=== PATIENT | male | born 1960 | race Caucasian/White ===

== ENCOUNTER 2019-12-12 15:18 | Inpatient (IN) | payer OTHER, SELFPAY ==
[2019-12-12] VITALS (21 sets, daily range): BP systolic 92–154; BP diastolic 68–114; PULSE 64–139; RESP 16–26; TEMP 36.1–36.9; O2SAT 91–100; BMI 31.5
--- NOTE | 2019-12-12 15:24 | ECG_ITS ---
[facility] ED Test Date: 2019-12-12 Pat Name: Paul Eduardo Department: Room: ICU03 Gender: 0 Paper Finisher: : 1960 Requested By: Panda Telles Order Number: [id number] Erasto MD: Faith Couch M.D. Measurements Intervals [place] Rate: 190 P: [place]: 0 QRS: 55 QRSD: 198 T: 0 QT: 234 QTc: 416 Interpretive Statements ATRIAL FIBRILLATION WITH RAPID VENTRICULAR RESPONSE WITH ABERRANT CONDUCTION OR VENTRICULAR PREMATURE COMPLEXES INTRAVENTRICULAR CONDUCTION DELAY [130+ ms QRS DURATION] INFERIOR MYOCARDIAL INFARCTION,PROBABLY OLD No previous ECG available for comparison Electronically Signed On 12-13-2019 13:43:03 CDT by Faith Couch M.D. [id number]
[2019-12-12] MEDS: vecuronium 10 mg SDV IVP (15:32)
[2019-12-12] MEDS: heparin 5,000 unit/mL INJ 1 mL 4000 UNIT IVP (15:33)
[2019-12-12] MEDS: clopidogrel 300 mg Tablet PO (15:33)
--- NOTE | 2019-12-12 15:34 | XACV_ITS ---
Exam Room: [facility] Ht: 178 cm Wt: 100 kg BSA: 2.25 m2 Gender: Male : 1960 Exam Priority: Routine Procedure(s): Procedure Description: Diagnostic procedure Procedure Description: PCI procedure Procedure Description: Drug Eluting Coronary Stent Procedure Description: PTCA Procedure Description: Miscellaneous Procedure Description: ACT Procedure Description: Coronary Angiography Diagnostic Cath Status: Emergency Diagnostic Findings LM has 0% stenosis. LAD has 0% stenosis. Mid Circumflex Coronary Artery: Severe 99% stenosis, KRISS: 1 flow. Mid Right Coronary Artery to RPAV: Severe 100% stenosis, KRISS: 0 flow. Coronary angiography shows co-dominance. PCI Status: Emergency PCI Indication: STEMI - Unstable (> 12 hrs from Sx) Interventional Findings Mid Circumflex Coronary Artery: 99% stenosis treated with AB TREK 2.50X12 RX BALLOON and MDT R JARRETT 4.0X12 MICA. 0% residual stenosis, KRISS: 3 flow. Conclusions There is severe coronary artery disease with two vessel disease. Mid Circumflex Coronary Artery was treated with Balloon and Drug Eluting Stent. Paul Eduardo is a 59 year old male brought in by EMS after electrical defibrillation at the scene found to have inferoposterior ST elevation NV complicated with V. fib arrest resuscitated multiple electrical cardioversion and CPR performance. Patient was intubated in the ER with suspicion of aspiration. 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 fib treated with electrical cardioversion and brought into emergency room as defined above. ST elevation patient was alerted I immediately saw the patient during the CPR he was given IV amiodarone . He was also noted to be in cardiogenic shock with systolic blood pressure into 70s. We immediately gave him IV fluid and took him to the [facility]. Through right groin approach he was noted to have chronically occluded mid RCA and subtotally occluded large dominant circumflex with mid highly calcified lesion. It was the culprit lesion. I treated with balloon angioplasty followed by drug-eluting stent placement. Patient was started on Levophed systolic blood pressure came back to 100 he was also noted to have separate ostium of the LAD without significant disease. Patient was then transferred to the ICU in relatively stable condition. Recommendations 1-Return to inpatient for close monitoring and routine cath care, continue pressors 2-Risk factor modification for secondary prevention 3-Statin with LDL goal <70 mg/dl, aspirin 81 mg life-long 4-Patient was pre-loaded with 180mg of Brillinta. Continue Brillinta 90mg p.o. twice daily for at least one year. We will assess at the end of one year again to continue it further or not 5-Continue optimal medical management 6-Follow up with Dr. Lea in four weeks and with your PCP in one week . Diagnostic RX Recommendation: PCI w/o planned CABG Pressures Phase:Rest AO : 69 mmHg / 64 mmHg ( 64 mmHg ) @ 11:09:00 AM 89 mmHg / 75 mmHg ( 82 mmHg ) @ 11:14:00 AM 87 mmHg / 72 mmHg ( 79 mmHg ) @ 11:17:00 AM Clinical Evaluation EBL: 5mL-10mL Procedural Details Pre-Procedure Time Out. Identified patient by full name and date of as verbalized by the patient/guarantor. Does the consent match the physician's order: N/A Emergent; Informed Consent not obtained due to time critical life threat. Accurate & Complete Informed Consent: N/A Emergent; Informed Consent not obtained due to time critical life threat. Inpatient/Outpatient History & Physical on Chart: N/A Emergent; Informed Consent not obtained due to time critical life threat. If H&P is completed, is and addenduem needed: N/A Emergent; Informed Consent not obtained due to time critical life threat; If yes, is the addendum complete: N/A Emergent; Informed Consent not obtained due to time critical life threat. Visualize and Verify Site with Patient/Guarantor: N/A. Relevant Radiology Images available: N/A. Procedure started. [facility] Clinical Fraility Score: 3: Managing Well. [facility] Indications: ACS <= 24 hours/ cardiac arrest. Chest Pain Symptom Assessment: Typical Angina Symptoms. Cardiovascular Instability: Yes, if yes, Cardiogenic Shock. Correct patient, site and procedure confirmed by cath team. PERRLA. 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 Lungs clear x 5 lobes. 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 Equipment: 6F - Radial. Physician arrived. Physician scrubbed in. Immediate Pre-Procedure Time Out. Correct Patient: N/A Emergent; Informed Consent not obtained due to time critical life threat; Correct Procedure: N/A Emergent; Informed Consent not obtained due to time critical life threat; Correct Site: N/A Emergent; Informed Consent not obtained due to time critical life threat; Correct Patient Position: N/A Emergent; Informed Consent not obtained due to time critical life threat; Correct Supplies: N/A Emergent; Informed Consent not obtained due to time critical life threat; Dried Flammable Prep: N/A Emergent; Informed Consent not obtained due to time critical life threat; Blood Products Available: N/A Emergent; Informed Consent not obtained due to time critical life threat;. Lidocaine 1% infiltrated to the right groin. Arterial access obtained. 6 pakistani JR 4 SH guide catheter was inserted over the wire. [place] guidewire was advanced through the guide catheter to lesion in the prox RCA. Inflation number : 3 A AB TREK 2.50X15 RX BALLOON was prepped and advanced across the Mid RCA , then inflated to 12 HI for 0:07 seconds. Inflation number: 2 The AB TREK 2.50X15 RX BALLOON was reinflated across the Mid RCA, to 12 HI for 0:03 seconds. Inflation number: 1 The AB TREK 2.50X15 RX BALLOON was reinflated across the Mid RCA, to 12 HI for 0:07 seconds. Balloon and wire out. Guide catheter out. 6 pakistani XB 3.5 guide catheter was inserted over the wire. [place] guidewire was advanced through the guide catheter to lesion in the mid Circ. Inflation number : 1 Chika NJ TREK 2.50X12 RX BALLOON was prepped and advanced across the Mid CX , then inflated to 14 HI for 0:14 seconds. Balloon out. Inflation Number : 2 Chika DEWEY Meyer JARRETT 4.0X12 MICA -Lot Number# [id number] exp date was prepped and advanced across the Mid CX. The stent was deployed at 18 HI for 0:11 seconds. Stent balloon and wire out. Inventory is CRD 6FR JL 4SH GUIDE. Amiodorone off. 6 pakistani JL 4 SH guide catheter was inserted over the wire. Claire RN present to monitor drips. 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 [place] guidewire was advanced through the guide catheter to lesion in the mid LAD. Wire out. Critical Potassium of 2.[address] Lea. Patient's family unavailable. Dr Lea will contact family. A Suture was successful obtaining hemostatsis at the Right Femoral artery insertion site. Sheath(s) sutured into position with 2-0 silk and sterile 4x4's and Op-site applied over the site. No oozing or signs and symptoms of hematoma noted. Arterial sheath flushed and connected to tranducer and pressure bag with heparinized saline. Post Procedure: Pulses reassessed and unchanged. PERRLA. 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 No VTE prophylaxis required. Dr Lea scrubbed out. ACT drawn. Results 217 seconds. Therapeutic limits - pre-heparin administration 90-150 seconds and monitoring heparin during a vascular procedure >250 seconds. Complications: none. Estimated blood loss: 5mL-10mL. Medication's Wasted: Lidocaine 1% = 10 mL. Medication's Wasted: Heparin = 1000 units. Pt had total of 2 L IV fluids. Contrast type used: Omnipaque 300 mgI/mL, 500 mL bottle. PCI Indication: STEMI. Procedure completed. Patient transferred by bed to ICU. Site: Right Femoral artery Sheath Size: 6 Fr Hemostasis Method: Suture Hemostasis Success: Successful Procedure Medications Start: 3:55 PM Stop: 3:55 PM Medication: 0.9% Saline Amount: 250 ml Route: I.V. bolus Start: 4:03 PM Stop: 4:03 PM Medication: Heparin Amount: 5000 units Route: I.V. Start: 4:06 PM Stop: 4:06 PM Medication: Aggrastat 12.5 mg/250 mL Amount: 50 ml Route: I.V. bolus Start: 4:10 PM Stop: 4:10 PM Medication: Levophed (norepinephrine) Amount: 2 mcg/min Route: I.V. drip Start: 4:17 PM Stop: 4:17 PM Medication: Levophed (norepinephrine) Amount: 8 mcg/min Route: I.V. drip Start: 4:08 PM Stop: 4:08 PM Medication: Aggrastat 12.5 mg/250 mL Amount: 18 ml/hr Route: I.V. drip Start: 4:36 PM Stop: 4:36 PM Medication: Heparin Amount: 3000 units Route: I.V. I, the attending physician, have reviewed and verified all procedure medications. Yes, all medications given per verbal order Report Signatures Finalized by:Monie Lea MD on 12/17/2019 3:55:00 PM
[2019-12-12] MEDS: sodium chloride 0.9% 1,000 ML 999 ML IV (15:40)
[2019-12-12 15:42] LABS: Basophils # 0.1 10^3/uL (0.0-0.1); Basophils % 0.9 %; Eosinophils # 0.3 10^3/uL (0.0-0.8); Eosinophils % 2.1 %; Hematocrit 48.8 % (42.0-52.0); Hemoglobin 15.8 g/dL (11.7-16.6); Lymphocytes % 51.1 %; Mean Corpuscular HGB Conc 32.4 g/dL (30.0-36.0); Mean Corpuscular Hemoglobin 29.4 pg (28.0-34.0); Mean Corpuscular Volume 90.7 fL (80-94); Monocytes # 1.2 10^3/uL (0.2-0.9); Monocytes % 8.4 %; Neutrophils # 5.1 10^3/uL (1.8-7.7); Neutrophils % 37.2 %; Nucleated Red Blood Cells % 0 %; Platelet Count 380 10^3/cmm (130-400); Red Blood Count 5.38 10^6/uL (4.1-5.3); Red Cell Distribution Width 13.6 % (12.1-15.1); White Blood Count 13.7 10^3/uL (4.0-10.0)
[2019-12-12 15:51] LABS: INR 0.97 (0.8-1.2)
--- NOTE | 2019-12-12 15:53 | W.ED.CHESTPA ---
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 Patient went to EMS and did have an ST elevation on his EKG. Patient went to [employer] [employer] on the way here and was cardioverted. Patient first arrived here he is awake and alert state he still had some slight pain. After being here for roughly 3 to 4 minutes patient went to [employer] again. Associated symptoms: Deny abdominal pain, dyspnea, fever(s), nausea or vomiting Review of Systems Const: Denies: fever(s), chills, body aches or change in appetite Eyes: Denies: blurry vision or eye discomfort ENMT: Denies: throat pain or dental pain Card: Reports: chest pain, irregular heart rhythm and lightheadedness Resp: Denies: dyspnea GI: Denies: abdominal pain, nausea, vomiting or diarrhea : Denies: dysuria Musc: Denies: neck pain or back pain Skin/Breast: Denies: rash Neuro: Denies: headache(s) Psych: Denies: depression Lion/Lymph: Denies: easy bruising All/Imm: Denies: urticaria PFSH ED PFSH: Social History Smoking and tobacco status: unknown if ever smoked Physical Exam Const: GENERAL APPEARANCE: in distress and ill appearing HENMT: COMMON NORMALS: normocephalic and atraumatic HEAD & SCALP: normocephalic and atraumatic Eye: COMMON NORMALS: Equal, round and reactive pupils present and EOMs intact bilaterally PUPIL: Yes Equal, round and reactive pupils present Neck/C-Spine: COMMON NORMALS: full ROM and supple Chest: COMMONS NORMALS: normal inspection of the chest and normal palpation of entire chest wall Resp: COMMON NORMALS: normal respiratory effort, No retractions, No use of accessory muscles and clear to auscultation bilaterally AUSCULTATION: clear to auscultation bilaterally Cardio: COMMON NORMALS: No murmurs present (Cardio) RATE: tachycardic GI: COMMON NORMALS: Normal to inspection, nondistended, normoactive bowel sounds present, Soft to palpation, non-tender and no masses PALPATION: Yes Soft to palpation Extremity: COMMON NORMALS: normal to inspection and full ROM Neuro: COMMON NORMALS: moves all extremities and no focal motor deficits Psych: COMMON NORMALS: mental status grossly normal, Normal thought process present and cooperative THOUGHT PROCESS: Normal thought process present Skin: COMMON NORMALS: no rashes or lesions noted and no wounds GENERAL SKIN EXAM: no rashes or lesions noted Procedures Intubation sedative: Etomidate Mg Given: 20 paralytic: Succinylcholine Mg Given: 200 Laryngoscope: Dena ET Tube Size: 7.5 ET Tube Uncuffed: Yes Tube Secured Depth (cm): 27 Tube Secured Location: lips Tube Placement Confirmation: visualized tube passing through cords, equal breath sounds bilaterally, no breath sounds over epigastrium and confirmation by capnometry Patient Tolerated Procedure: well MDM - Chest Pain MDM Narrative: Medical decision making narrative: Patient presents here after he walked to EMS complain of chest pain. Initial EKG by EMS showed ST elevation OK. Patient had one episode of V. fib and was shocked and converted on way here. In first patient first arrived he was awake and then went to V. fib again. Patient was cardioverted again and and abated. Patient was given lidocaine along with amiodarone and had another episode of V. fib and was shocked twice. Patient taken to the [facility] after that by Dr. 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 Lab Data: Labs: Lab Results 12/12/19 Range/Units 15:35 PT 13.20 (10.5-13.3) SECO NDS INR 0.97 (0.8-1.2) Critical Care Time Critical Care Time: Critical Care Time: Yes Total Critical Care Time: 36 Attestation: This case had a high probability of a clinically significant, sudden, or life threatening deterioration of this patient's condition which required my full and direct attention, intervention and personal management. Discharge Plan Discharge Patient Disposition: Admitted As Inpatient Clinical Impression: Cardiac arrest ST elevation (STEMI) myocardial infarction Qualifiers: Involved coronary artery: unspecified coronary artery Qualified Code(s): I21.3 - ST elevation (STEMI) myocardial infarction of unspecified site Condition: Stable Coding Level of Care Code ED Nightclub Manager for Mandeep Simmons
[2019-12-12 15:59] LABS: Partial Thromboplastin Time 74.4 SECONDS (23.9-36.7)
[2019-12-12 16:08] LABS: Alanine Aminotransferase 30 U/L (0-41); Albumin Level 4.2 g/dL (3.5-5.2); Alkaline Phosphatase 51 IU/L (40-130); Anion Gap 29.9 (5-19); Aspartate Amino Transferase 29 U/L (0-40); Blood Urea Nitrogen 12 mg/dL (6-20); CKMB 2.2 ng/mL (0-10.4); Calcium 9.3 mg/dL (8.5-10.5); Carbon Dioxide 16 mmol/L (22-29); Chloride 102 mmol/L (98-107); Creatine Phosphokinase 125 U/L (39-308); Globulin 2.7 g/dL (1.3-4.6); Glomerular Filtration Rate 52.2 mL/min (90-130); Glucose 176 mg/dL (65-115); NT Pro B Type Natriuretic Pept 484 pg/mL (0-125); Osmolality Calculated 300 mOsm/kg (285-295); Sodium 145 mmol/L (136-145); Total Bilirubin 0.5 mg/dL (0.15-1.2); Total Protein 6.9 g/dL (6.6-8.7); Troponin(5th) Baseline 90 ng/L (0-15)
[2019-12-12 16:22] LABS: Potassium 2.9 mmol/L (3.5-5.1)
[2019-12-12 16:27] LABS: Slide Review Slide Review Perform
[2019-12-12 16:30] LABS: ABG PCO2 37.1 mmHg (35-45); ABG PH Result 7.27 (7.35-7.45); Alveolar-Arterial Oxygen Gradi 59.4 mmHg (5-10); Arterial Blood Gas Hematocrit 50.4 % (42-52); Base Excess ABG -8.9 mmol/L (-2.0-2.0); Blood Gas Allen Test Pos; Blood Gas Sample Site Brachial, left; Blood Gas Sample Type Arterial; Carboxyhemoglobin 0.7 %THgb (0.4-20.1); HCO3 ABG 17.2 mmol/L (22-26); HGB O2 Sat 72.9 % (95-100); Ionized Calcium Level - ABG 1.1 mmol/L (1.1-1.4); Methemoglobin 0.8 % (0.4-1.5); Oxygen Device AMBU; Oxygen Saturation ABG 74.1; Potassium Level - ABG 2.6 mmol/L (3.5-5.0); Total Hemoglobin 16.4 g/dL (14-18)
--- NOTE | 2019-12-12 16:49 | USCV_ITS ---
Paul Eduardo Age: 59 Gender: M : 1960 Exam Date: 12/12/2019 17:41 Ordering Phys: Monie Lea MD ([email or web address]) Technologist: Mone Tamez Exam Location: [facility] Indication: HI SHOCK BP: / HR: 66 Rhythm: Sinus Technical Quality: Fair MEASUREMENTS (Male / Female) Normal Values 2D ECHO LVOT Diameter 2.1 cm LV Ejection Fraction MOD 2C 44.4 % LV Ejection Fraction 2C AL 43.8 % LA Diameter 3.5 cm M-MODE LV Diastolic Diameter MM 4.9 cm 4.2 - 5.9 / 3.9 - 5.3 cm LV Systolic Diameter MM 3.8 cm LV Ejection Fraction MM Teich 45.1 % IVS Diastolic Thickness MM 1.0 cm 0.6 - 1.0 / 0.6 - 0.9 cm IVS Systolic Thickness MM 1.7 cm LVPW Diastolic Thickness MM 1.3 cm 0.6 - 1.0 / 0.6 - 0.9 cm LVPW Systolic Thickness MM 2.1 cm RV Diastolic Diameter MM 1.7 cm Aortic Annulus Diameter 3.1 cm LA Ao Ratio MM 1.1 MV E Point Septal Separation 1.8 cm FINDINGS Left Ventricle Normal left ventricular cavity size. Moderately decreased left ventricular systolic function. Left ventricular ejection fraction is estimated at 45 %. Left ventricular lateral wall hypokinesis noted Right Ventricle Right Atrium Left Atrium Mitral Valve Aortic Valve Tricuspid Valve Pulmonic Valve Pericardium Aorta CONCLUSIONS Please note that this is a limited echo to assess LV function post cardiac arrest and intubated patient. Normal left ventricular cavity size. Moderately decreased left ventricular systolic function. Left ventricular ejection fraction is estimated at 45 %. Left ventricular lateral wall hypokinesis noted. Monie Lea MD (Electronically Signed) Final Date: 13 December 2019 19:22 S
--- NOTE | 2019-12-12 16:54 | PM.HP ---
Providers/Chief Complaint Admitting Physician: Monie Lea MD Chief Complaint: Post-code/STEMI History of Present Illness Paul Eduardo is a 59 year old male brought in by EMS after electrical defibrillation at the scene found to have inferoposterior ST elevation CA complicated with V. fib arrest resuscitated multiple electrical cardioversion and CPR performance. Patient was intubated in the ER with suspicion of aspiration. 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 fib treated with electrical cardioversion and brought into emergency room as defined above. ST elevation patient was alerted I immediately saw the patient during the CPR he was given IV amiodarone and started on the drip. He was also noted to be in cardiogenic shock with systolic blood pressure into 70s. We immediately gave him IV fluid and took him to the [facility]. Through right groin approach he was noted to have chronically occluded mid RCA and subtotally occluded large dominant circumflex with mid highly calcified lesion. It was the culprit lesion. I treated with balloon angioplasty followed by drug-eluting stent placement. Patient was started on Levophed systolic blood pressure came back to 100 he was also noted to have separate ostium of the LAD without significant disease. Patient was then transferred to the ICU in relatively stable condition. Review of Systems Const: Denies: fever(s), chills, body aches or change in appetite Eyes: Denies: blurry vision or eye discomfort ENMT: Denies: throat pain or dental pain Card: Reports: chest pain, irregular heart rhythm and lightheadedness Resp: Denies: dyspnea GI: Denies: abdominal pain, nausea, vomiting or diarrhea : Denies: dysuria Musc: Denies: neck pain or back pain Skin/Breast: Denies: rash Neuro: Denies: headache(s) Psych: Denies: depression Lino/Lymph: Denies: easy bruising All/Imm: Denies: urticaria Medications/Allergies Allergies Allergy/AdvReac Type Severity Reaction Status Date / Time No Known Allergies Allergy Verified 12/12/19 16:44 PFSH Acute PFSH: Social History Smoking and tobacco status: unknown if ever smoked Vitals/I&O/Wt Last Vital Signs Pulse 139 H 12/12/19 15:19 Resp 20 H 12/12/19 15:19 BP 154/114 12/12/19 15:19 Pulse Ox 100 12/12/19 15:19 Weight last 48 hrs Weight 220 lb Physical Exam Narrative: EXAM NARRATIVE: GENERAL: Patient is intubated and sedated NECK: No jugular vein distension. HEENT: No cyanosis. No icterus. pallor. HEART: Regular S1 and S2. No murmur, rub or gallop. LUNGS: Decreased breath bilaterally. ABDOMEN: Soft, nontender and nondistended. Positive bowel sounds. No guarding, rebound or tenderness. 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 Urinary Catheter Management^: Page: Cath Placed During This Visit: yes Reason for Continuing Indwelling Catheter: Other Urinary Catheter Date of Insertion: 12/12/19 Urinary Catheter Time of Insertion: 15:40 Data : 12/12/19 15:35 12/12/19 15:35 A&P Assessment and plan (1) ST elevation (STEMI) myocardial infarction: Status post drug-eluting stent to proximal circumflex with excellent angiographic result. I will switch patient to Effient, Aggrastat was started. We will continue to intubate the patient for airway protection until he become fully cognitive and conscious. Further plan will be advised then. Status: Acute Qualifiers: Involved coronary artery: unspecified coronary artery Qualified Code(s): I21.3 - ST elevation (STEMI) myocardial infarction of unspecified site (2) Cardiac arrest: Cardiac arrest secondary to ST elevation CA and life-threatening arrhythmia (ventricle fibrillation), since he has revascularized the circumflex territory hopefully ventricular fibrillation/arrhythmia will resolve. We will use amiodarone if needed Status: Acute (3) Cardiogenic shock: I will continue IV fluid and norepinephrine. We will titrate off once improved. Echocardiogram will be obtained to assess LV function, x-ray chest will be obtained. I will start patient on IV Protonix Status: Acute (4) Aspiration into airway: I have the suspicion patient may have aspirated. I will start on Zosyn for prophylaxis to cover anaerobes. I will ask for x-ray chest. Status: Acute Qualifiers: Encounter type: initial encounter Qualified Code(s): T17.908A - Unspecified foreign body in respiratory tract, part unspecified causing other injury, initial encounter Attestations Medical Necessity Statement*: Patient require continuation hospitalization for above defined care. He is critical in condition. I have discussed in detail with the family his both son on the telephone regarding my findings and treatment they understand it and are in agreement. Prognosis guarded Time Spent in Patient Care: Greater than 35 minutes Critical Care Time: Critical Care Time (min): 60 Coding Level of Care Code New Pt Acute Account Review Specialist for Chg Fwd Patient Type New History Comprehensive Exam Comprehensive Medical Decision Making High Complexity Diagnoses ST elevation (STEMI) myocardial infarction I21.3 Involved coronary artery: unspecified coronary artery Cardiac arrest I46.9 Cardiogenic shock R57.0 Aspiration into airway T17.908A Encounter type: initial encounter Time Spent (min) 90
--- NOTE | 2019-12-12 17:12 | XR_ITS ---
WS: [id number] XR chest 1V portable [id number] REASON FOR EXAM: intubation ogt FINDINGS: Endotracheal tube is noted approximately 2 cm above the galen. There is pulmonary edema bilaterally. There is a feeding tube seen in good position in the stomach. XR/XR chest 1V portable [id number] IMPRESSION: Acute pulmonary edema bilaterally Endotracheal tube and feeding tube satisfactory position.
[2019-12-12 17:17] LABS: ABG PCO2 38.7 mmHg (35-45); ABG PH Result 7.32 (7.35-7.45); Alveolar-Arterial Oxygen Gradi 595.2 mmHg (5-10); Arterial Blood Gas Hematocrit 46.1 % (42-52); Base Excess ABG -5.9 mmol/L (-2.0-2.0); Blood Gas Allen Test Pos; Blood Gas Sample Site Radial, left; Blood Gas Sample Type Arterial; Blood Gas Tidal Volume 0.55; Carboxyhemoglobin 0.7 %THgb (0.4-20.1); HCO3 ABG 19.8 mmol/L (22-26); HGB O2 Sat 86.5 % (95-100); Oxygen Device VENT; PO2 ABG 57.4 mmHg (80.0-100.0); Potassium Level - ABG 3.4 mmol/L (3.5-5.0)
--- NOTE | 2019-12-12 17:24 | ECG_ITS ---
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 Measurements Intervals [place] Rate: 75 P: 56 WI: 159 QRS: 22 QRSD: 98 T: -24 QT: 458 QTc: 512 Interpretive Statements SINUS RHYTHM WITH OCCASIONAL VENTRICULAR PREMATURE COMPLEXES INFERIOR MYOCARDIAL INFARCTION [40+ ms Q WAVE AND/OR ST/T ABNORMALITY IN II/aVF], OF INDETERMINATE AGE ST DEPRESSION, CONSIDER SUBENDOCARDIAL INJURY [0.1+ mV ST DEPRESSION] Compared to ECG 12/12/2019 15:29:32 ST (T wave) deviation now present Atrial fibrillation no longer present Aberrant conduction of supraventricular beat(s) no longer present Intraventricular conduction delay no longer present Myocardial infarct finding still present Electronically Signed On 12-13-2019 14:14:55 CDT by Faith Couch M.D. [id number]
[2019-12-12] MEDS: propofol 1,000 MG/100 ML INJ 15 MG (17:33)
[2019-12-12] MEDS: pantoprazole 40 mg SDV IVP (17:34)
[2019-12-12] MEDS: morphine 4 mg/mL SDV 1 mL IVP (17:35)
[2019-12-12] MEDS: piperacillin-tazobactam 3.375 GM in sodium chloride 0.9% (plus) 50 ML IV (17:36)
[2019-12-12] MEDS: potassium chloride premix 40 MEQ/100 ML PREMIX 25 MEQ IV (17:38)
[2019-12-12 17:48] LABS: Troponin 5 2HR 1021 ng/L (0-15); Troponin 5 2HR Delta 931 ABS# (0-10)
[2019-12-12] MEDS: sodium chloride 0.9% 1,000 ML 250 ML IV (18:07)
[2019-12-12] MEDS: prasugrel 10 MG Tablet 60 MG PO (18:09)
[2019-12-12] MEDS: sodium chloride 0.9% 1,000 ML 100 ML IV (19:45)
--- NOTE | 2019-12-12 21:24 | ECG_ITS ---
[facility] Test Date: 2019-12-12 Pat Name: Paul Eduardo Department: Room: ICU03 Gender: Male Inspector Salvage: [place] : 1960 Requested By: Panda Telles Order Number: [id number] Erasto MD: Faith Couch M.D. Measurements Intervals [place] Rate: 72 P: 59 IA: 160 QRS: -4 QRSD: 88 T: -55 QT: 414 QTc: 454 Interpretive Statements SINUS RHYTHM INFERIOR MYOCARDIAL INFARCTION [40+ ms Q WAVE AND/OR ST/T ABNORMALITY IN II/aVF], OF INDETERMINATE AGE Compared to ECG 12/12/2019 17:03:51 Ventricular premature complex(es) no longer present ST (T wave) deviation no longer present Myocardial infarct finding still present Electronically Signed On 12-13-2019 14:14:23 CDT by Faith Couch M.D. [id number]
[2019-12-12 22:15] LABS: Troponin 5 6HR 4650 ng/L (0-15); Troponin 5 6HR Delta 4560 ng/L (0-12)
[2019-12-12 22:43] LABS: Partial Thromboplastin Time 41.5 SECONDS (23.9-36.7)
[2019-12-12] MEDS: ondansetron 2 mg/ML SDV 2 mL 4 MG IVP (23:30)
[2019-12-13] VITALS (27 sets, daily range): BP systolic 93–122; BP diastolic 61–85; PULSE 81–101; RESP 12–27; TEMP 36.7–37.2; O2SAT 87–97
[2019-12-13] MEDS: piperacillin-tazobactam 3.375 GM in sodium chloride 0.9% (plus) 50 ML IV ×3 (02:44→15:13)
[2019-12-13 05:05] LABS: Basophils % 0.2 %; Hematocrit 44.2 % (42.0-52.0); Hemoglobin 14.1 g/dL (11.7-16.6); Lymphocytes # 1.1 10^3/uL (0.8-4.8); Mean Corpuscular HGB Conc 31.9 g/dL (30.0-36.0); Mean Corpuscular Hemoglobin 29.5 pg (28.0-34.0); Mean Corpuscular Volume 92.5 fL (80-94); Mean Platelet Volume 10.3 fL (7.4-10.4); Monocytes # 0.9 10^3/uL (0.2-0.9); Monocytes % 5.3 %; Neutrophils # 15.3 10^3/uL (1.8-7.7); Nucleated Red Blood Cells % 0 %; Platelet Count 264 10^3/cmm (130-400); Red Blood Count 4.78 10^6/uL (4.1-5.3); Red Cell Distribution Width 14.1 % (12.1-15.1); White Blood Count 17.4 10^3/uL (4.0-10.0)
[2019-12-13] MEDS: sodium chloride 0.9% 1,000 ML 100 ML IV (05:23)
[2019-12-13] MEDS: pantoprazole 40 mg SDV IVP ×2 (05:23→15:15)
--- NOTE | 2019-12-13 05:42 | PC.NURSE ---
Shift Summary Full head to toe Assessment complete at 1930. Patient was on Levophed at 9 mcg and propofol at [address] Lea at bedside around 2200. Stated to plan and extubate based on patient tolerance. RT decreased vent settings to test patient tolerance around 2200. Tolerating well at this time. At 2300, patient began to cough and proceeded to projectile vomit x3 around ET and OG tube. Brown non-digested food was noted. Post vomit, patient was cleaned and proceeded to be alert and oriented. Able to follow commands and lift head off pillow to prepare for extubation. Both Levophed and Propofol were shut off at this time. Patient was extubated at 2310 to 4L/NC. Tolerated well. PTT came back around 2330 to remove sheath. Sheath in right femoral artery was removed at 2342. see post cath sheet. Patient tolerated well. Educated patient on importance of Cough and Deep Breathing. Also, sheath removal precautions. At about 0300, patient stated he wanted water. Tolerated well. Advanced diet to cardiac diet for AM breakfast per order. updated at 0100 of patient condition. Very pleased.
[2019-12-13 05:52] LABS: Anion Gap 12.7 (5-19); Blood Urea Nitrogen 13 mg/dL (6-20); Calcium 7.6 mg/dL (8.5-10.5); Carbon Dioxide 23 mmol/L (22-29); Chloride 108 mmol/L (98-107); Glomerular Filtration Rate 56.9 mL/min (90-130); Glucose 142 mg/dL (65-115); Osmolality Calculated 287 mOsm/kg (285-295); Potassium 4.7 mmol/L (3.5-5.1); Sodium 139 mmol/L (136-145)
[2019-12-13] MEDS: enoxaparin 40 mg/0.4 mL Syringe SUBCUT (07:37)
[2019-12-13] MEDS: acetaminophen 325 mg Tablet 650 MG PO (07:39)
[2019-12-13] MEDS: ALPRAZolam 0.25 mg Tablet PO ×2 (07:40→15:13)
--- NOTE | 2019-12-13 09:21 | PC.NURSE ---
PATIENT IS ALERT AND ORIENTATED. COMPLAINS OF FEELING TIRED. HE ATE ONLY A FEW BITES OF OATMEAL AND DRANK HIS FLUIDS. HIS FAMILY WAS ALLOWED BACK TO SEE HIM AND WERE UPDATED ON HIS PROGRESS. CONCERNS FOR RISK FOR LUNG INFECTION, AND THE NEED FOR BLOOD THINNERS SPECIFIC TO HIS STENT. HIS DIET WILL BE CHANGED ONCE OUT TO A LOW FAT LOW SODIUM DIET BUT IF HE DOES WELL HE CAN ANTICIPATE GOING HOME BY THE WEEKEND. PLAN TO GET UP TO THE CHAIR ONCE HIS VISITORS HAVE LEFT.
[2019-12-13 09:44] LABS: Estmated Average Glucose 108; Hemoglobin A1C 5.4 % (4.0-6.0)
[2019-12-13] MEDS: oxyCODONE-APAP 5-325 mg Tablet PO ×2 (10:37→15:14)
[2019-12-13] MEDS: prasugrel 10 MG Tablet PO (10:38)
--- NOTE | 2019-12-13 12:57 | PC.NURSE ---
attempted to get patient to chair at 0900, 1000 while family there and after they left. he awakened for lunch but refused to eat in the chair. i had him on room air while eating but after lunch he dropped to 87 88 and i had to resume oxygen at 2.5 liters to keep a sat above 90. patient is aware of risk .
--- NOTE | 2019-12-13 18:32 | P.PN_ITS ---
Subjective Subjective: Interval history: Successfully extubated last night and weaned off from pressors. He is mentating good. Chest pain due to some soreness in the chest musculoskeletal in nature secondary to possible rib injury Medications: Reviewed: Yes Vitals/I&O/Wt Last Vital Signs Temp 98.8 F 12/13/19 16:00 Pulse 93 12/13/19 18:00 Resp 20 H 12/13/19 18:00 BP 95/65 12/13/19 18:00 Pulse Ox 93 12/13/19 18:00 12/13/19 12/13/19 12/13/19 06:59 14:59 22:59 Intake Total 1507.773 / 2736.358 1946.667 / 1946.667 400 / 2346.667 Output Total 500 / 500 450 / 450 300 / 750 Balance 1007.773 / 2236.358 1496.667 / 1496.667 100 / 1596.667 Weight last 48 hrs Weight 220 lb Physical Exam Narrative: EXAM NARRATIVE: GENERAL: Patient is alert awake and oriented x3 NECK: No jugular vein distension. HEENT: No cyanosis. No icterus. pallor. HEART: Regular S1 and S2. No murmur, rub or gallop. LUNGS: Clear to auscultate breath bilaterally. ABDOMEN: Soft, nontender and nondistended. Positive bowel sounds. No guarding, rebound or tenderness. 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 Urinary Catheter Management^: Page: Cath Placed During This Visit: yes, but has since been removed by the nurse Reason for Continuing Indwelling Catheter: Decision to DC Catheter Urinary Catheter Date of Insertion: 12/12/19 Urinary Catheter Time of Insertion: 15:40 Date Urinary Catheter Removed: 12/13/19 Time Urinary Catheter Discontinued: 10:30 Data : 12/13/19 04:09 12/13/19 05:30 Micro: Microbiology 12/12/19 17:45 Gram Stain - Final Sputum - Endotracheal Tube Aspirate A&P Assessment and plan (1) ST elevation (STEMI) myocardial infarction: Patient has been successfully extubated and weaned off from pressors. Systolic blood pressure hangs around 100. Continue Effient aspirin 81 mg, atorvastatin was added. Echocardiogram is pending. We will add metoprolol and MAL inhibitor once blood pressure is more stable. Status: Acute Qualifiers: Involved coronary artery: unspecified coronary artery Qualified Code(s): I21.3 - ST elevation (STEMI) myocardial infarction of unspecified site (2) Cardiac arrest: Resolved most likely secondary to STEMI Status: Acute (3) Cardiogenic shock: Improved and resolved. Status: Acute (4) Aspiration into airway: Continue IV antibiotics. Lungs are clear. I may will stop it tomorrow Status: Acute Qualifiers: Encounter type: initial encounter Qualified Code(s): T17.908A - Unspecified foreign body in respiratory tract, part unspecified causing other injury, initial encounter Attestations Medical Necessity Statement*: Patient require continuation hospitalization for above defined care. Coding Level of Care Code Established Pt Acute Or Nurse Manager for Mandeep Simmons Patient Type Established History Expanded Problem Focused Exam Expanded Problem Focused Medical Decision Making Moderate Complexity Diagnoses ST elevation (STEMI) myocardial infarction I21.3 Involved coronary artery: unspecified coronary artery Cardiac arrest I46.9 Cardiogenic shock R57.0 Aspiration into airway T17.908A Encounter type: initial encounter
--- NOTE | 2019-12-13 19:30 | PC.NURSE ---
190 Patient is resting comfortably in chair at bedside. Report given by ANEL Remy. Patient has no concerns at this time. 1914 Report given to ANEL Beltre on CSU. Patient was transferred to wheelchair safely. Taken to CSU by SHAHEED Nguyễn. Transferred safely to CSU bed. Resting comfortably, nursing at bedside.
[2019-12-13] MEDS: atorvastatin 40 mg Tablet 80 MG PO (20:38)
--- NOTE | 2019-12-13 23:15 | PC.NURSE ---
Received patient from ICU ~1935 via wheelchair. Patient reports feeling well. C/o chest pain from compressions . Patient denies other complaints or needs. No distress observed.
[2019-12-14] VITALS (8 sets, daily range): BP systolic 109–118; BP diastolic 60–76; PULSE 95–107; RESP 18–30; TEMP 36.5–39.1; O2SAT 89–94
--- NOTE | 2019-12-14 | USCV_ITS ---
Paul Eduardo Age: 59 Gender: M : 1960 Exam Date: 12/14/2019 07:42 Ordering Phys: Monie Lea MD ([email or web address]) Technologist: Neil Hernandes [place] [facility] [place]: [place] BP: 128 / 78 HR: 84 Rhythm: Sinus Technical Quality: Fair MEASUREMENTS (Male / Female) Normal Values 2D ECHO LV Diastolic Diameter PLAX 5.3 cm 4.2 - 5.9 / 3.9 - 5.3 cm LV Systolic Diameter PLAX 3.3 cm IVS Diastolic Thickness 1.1 cm 0.6 - 1.0 / 0.6 - 0.9 cm IVS Systolic Thickness 1.4 cm LVPW Diastolic Thickness 1.0 cm 0.6 - 1.0 / 0.6 - 0.9 cm LVPW Systolic Thickness 1.5 cm LVOT Diameter 2.0 cm LV Ejection Fraction 2D Teich 68.2 % LV Ejection Fraction 2C AL 51.0 % LA Diameter 3.8 cm M-MODE LV Diastolic Diameter MM 5.4 cm 4.2 - 5.9 / 3.9 - 5.3 cm LV Systolic Diameter MM 3.6 cm IVS Diastolic Thickness MM 0.9 cm 0.6 - 1.0 / 0.6 - 0.9 cm IVS Systolic Thickness MM 1.4 cm LVPW Diastolic Thickness MM 1.0 cm 0.6 - 1.0 / 0.6 - 0.9 cm LVPW Systolic Thickness MM 1.7 cm RV Diastolic Diameter MM 1.8 cm Aortic Annulus Diameter 3.5 cm LA Ao Ratio MM 1.1 MV E Point Septal Separation 1.0 cm DOPPLER AV Peak Velocity 110.0 cm/s LVOT Peak Velocity 70.0 cm/s AV Area Cont Eq vti 1.9 cm squared AV Area Cont Eq pk 2.0 cm squared MV Area PHT 5.0 cm squared Mitral E to A Ratio 1.5 MV E' Velocity 14.0 cm/s Mitral E to MV E' Ratio 8.7 Mitral E to LV E' Lateral Ratio 6.8 Mitral E to LV E' Septal Ratio 12.1 TR Peak Velocity 208.0 cm/s TR Peak Gradient 17.3 mmHg TV Peak E Velocity 84.0 cm/s FINDINGS Left Ventricle Normal left ventricular cavity size. Moderately decreased left ventricular systolic function. Left ventricular ejection fraction is estimated at 45 %. There appeared to be lateral wall severe hypokinesis.Grade I/IV diastolic dysfunction (abnormal relaxation filling pattern), normal to mildly elevated filling pressures. Right Ventricle The right ventricle is normal in size and function. RVSP could not be calculated due to incomplete tricuspid regurgitation velocity profile. Right Atrium The right atrium is normal in size. Left Atrium The left atrium is normal in size. Mitral Valve Moderately thickened mitral valve. Mild mitral annular calcification. No mitral valve stenosis. Mild mitral valve regurgitation. Aortic Valve Mild aortic valve calcification. No aortic valve stenosis. Trace aortic valve regurgitation. Tricuspid Valve Structurally normal tricuspid valve without significant stenosis or regurgitation. Pulmonic Valve Structurally normal pulmonic valve without significant stenosis. There is no pulmonic regurgitation. Pericardium Normal pericardium without effusion. Aorta Normal ascending aorta dimension. CONCLUSIONS 1-Normal left ventricular cavity size. Moderately decreased left ventricular systolic function. Left ventricular ejection fraction is estimated at 45 %. There appeared to be lateral wall severe hypokinesis.Grade I/IV diastolic dysfunction (abnormal relaxation filling pattern), normal to mildly elevated filling pressures. 2-The right ventricle is normal in size and function. RVSP could not be calculated due to incomplete tricuspid regurgitation velocity profile. 3-Moderately thickened mitral valve. Mild mitral annular calcification. No mitral valve stenosis. Mild mitral valve regurgitation. 4-Mild aortic valve calcification. No aortic valve stenosis. Trace aortic valve regurgitation. 5-There is no pericardial effusion. 6-There is no pericardial effusion. 7-There are no prior echocardiogram studies to compare. Monie Lea MD (Electronically Signed) Final Date: 16 December 2019 18:28 S
[2019-12-14] MEDS: oxyCODONE-APAP 5-325 mg Tablet PO ×2 (00:18→12:27)
[2019-12-14] MEDS: piperacillin-tazobactam 3.375 GM in sodium chloride 0.9% (plus) 50 ML IV ×3 (00:20→16:03)
[2019-12-14] MEDS: pantoprazole 40 mg SDV IVP ×2 (04:17→16:02)
[2019-12-14] MEDS: enoxaparin 40 mg/0.4 mL Syringe SUBCUT (08:14)
[2019-12-14] MEDS: prasugrel 10 MG Tablet PO (08:14)
--- NOTE | 2019-12-14 09:26 | PC.NURSE ---
PASSWORD [phone]
--- NOTE | 2019-12-14 12:21 | PC.NURSE ---
ROUNDING WITH DR LIM WILL MONITOR PATIENT TEMPERATURE. WANTS PATIENT TO BE UP IN THE CHAIR AND AMBULATE MORE TODAY.
--- NOTE | 2019-12-14 18:34 | P.PN_ITS ---
Subjective Subjective: Interval history: Patient had fever this morning, he is complaining of cough. He denies any chest pain. Medications: Reviewed: Yes Vitals/I&O/Wt Last Vital Signs Temp 99.9 F H 12/14/19 15:57 Pulse 95 12/14/19 15:57 Resp 20 H 12/14/19 15:57 BP 118/69 12/14/19 15:57 Pulse Ox 94 12/14/19 15:57 12/14/19 12/14/19 12/14/19 06:59 14:59 22:59 Intake Total 550 / 2946.667 530 / 530 240 / 770 Output Total 675 / 675 375 / 1050 Balance 550 / 2196.667 -145 / -145 -135 / -280 Physical Exam Narrative: EXAM NARRATIVE: GENERAL: Patient is alert, awake and oriented x3 but moderately NECK: No jugular vein distension. HEENT: No cyanosis. No icterus. No pallor. HEART: Regular S1 and S2. No murmur, rub or gallop. LUNGS: Inspiratory crackles bilaterally. ABDOMEN: Soft, nontender and nondistended. Positive bowel sounds. No guarding, rebound or tenderness. CENTRAL NERVOUS SYSTEM: Grossly nonfocal. EXTREMITIES: Lower extremities without edema bilaterally. Urinary Catheter Management^: Page: Cath Placed During This Visit: yes, but has since been removed by the nurse Reason for Continuing Indwelling Catheter: Decision to DC Catheter Urinary Catheter Date of Insertion: 12/12/19 Urinary Catheter Time of Insertion: 15:40 Date Urinary Catheter Removed: 12/13/19 Time Urinary Catheter Discontinued: 10:30 Data : 12/13/19 04:09 12/13/19 05:30 Micro: Microbiology 12/12/19 17:45 Gram Stain - Final Sputum - Endotracheal Tube Aspirate Sputum Culture - Preliminary A&P Assessment and plan (1) ST elevation (STEMI) myocardial infarction: Stable from a coronary disease perspective. Post PCI to circumflex. Ec hocardiogram suggestive of moderately depressed LV function with lateral wall hypokinesis suggestive of myocardial infarction, continue current regimen add metoprolol Status: Acute Qualifiers: Involved coronary artery: unspecified coronary artery Qualified Code(s): I21.3 - ST elevation (STEMI) myocardial infarction of unspecified site (2) Cardiac arrest: Resolved most likely secondary to STEMI Status: Acute (3) Cardiogenic shock: Improved and resolved. Status: Acute (4) Aspiration into airway: Patient had fever, I will continue IV antibiotics. I will ask for CBC Status: Acute Qualifiers: Encounter type: initial encounter Qualified Code(s): T17.908A - Unspe cified foreign body in respiratory tract, part unspecified causing other injury, initial encounter Attestations Medical Necessity Statement*: Require continuation hospitalization for above defined care. Coding Level of Care Code Established Pt Acute Inventory Technician for Mandeep Simmons Patient Type Established History Detailed Exam Detailed Medical Decision Making Moderate Complexity Diagnoses ST elevation (STEMI) myocardial infarction I21.3 Involved coronary artery: unspecified coronary artery Cardiac arrest I46.9 Cardiogenic shock R57.0 Aspiration into airway T17.908A Encounter type: initial encounter
[2019-12-14] MEDS: metoprolol succinate ER (24 HR) 25 mg Tablet 12.5 MG PO (20:26)
[2019-12-14] MEDS: atorvastatin 40 mg Tablet 80 MG PO (20:26)
--- NOTE | 2019-12-14 21:03 | PC.NURSE ---
Provided patient with instruction regarding deep breathing and coughing to prevent pneumonia. Patient demonstrated a deep breath and subsequent cough. Patient verbalized complete understanding stating, I do not want to get pneumonia now. Patient rib pain is controlled presently.
[2019-12-15] VITALS (10 sets, daily range): BP systolic 96–133; BP diastolic 59–73; PULSE 66–99; RESP 15–27; TEMP 36.6–38.5; O2SAT 92–97
[2019-12-15] MEDS: piperacillin-tazobactam 3.375 GM in sodium chloride 0.9% (plus) 50 ML IV ×3 (00:06→17:21)
[2019-12-15] MEDS: oxyCODONE-APAP 5-325 mg Tablet PO ×3 (00:10→18:07)
--- NOTE | 2019-12-15 00:13 | PC.NURSE ---
Patient has current temperature of 101.3. Dr Lea is aware of patient's spikes in temperature. Patient is s/p cardiac arrest which resulted in broken ribs. Administered Percocet as ordered for severe pain to ribs 8/10, also this should help with temperature. Reinforced instruction to deep breathe and cough. Patient stated, I have been able to do this and bring up stuff to clear my lungs. He verbalizes complete understanding.
[2019-12-15] MEDS: pantoprazole 40 mg SDV IVP ×2 (05:54→17:22)
[2019-12-15 08:32] LABS: Basophils # 0.1 10^3/uL (0.0-0.1); Basophils % 0.6 %; Eosinophils # 0.2 10^3/uL (0.0-0.8); Eosinophils % 1.6 %; Hematocrit 37.2 % (42.0-52.0); Hemoglobin 11.9 g/dL (11.7-16.6); Lymphocytes # 2.1 10^3/uL (0.8-4.8); Lymphocytes % 20.4 %; Mean Corpuscular Hemoglobin 30.4 pg (28.0-34.0); Mean Corpuscular Volume 94.9 fL (80-94); Mean Platelet Volume 10.3 fL (7.4-10.4); Monocytes # 0.9 10^3/uL (0.2-0.9); Monocytes % 8.4 %; Neutrophils # 7.1 10^3/uL (1.8-7.7); Neutrophils % 68.4 %; Nucleated Red Blood Cells % 0 %; Platelet Count 174 10^3/cmm (130-400); Red Blood Count 3.92 10^6/uL (4.1-5.3); Red Cell Distribution Width 13.8 % (12.1-15.1); White Blood Count 10.3 10^3/uL (4.0-10.0)
[2019-12-15 09:03] LABS: Blood Urea Nitrogen 13 mg/dL (6-20); Calcium 8.5 mg/dL (8.5-10.5); Carbon Dioxide 23 mmol/L (22-29); Chloride 103 mmol/L (98-107); Glucose 124 mg/dL (65-115); Osmolality Calculated 280 mOsm/kg (285-295); Sodium 136 mmol/L (136-145)
[2019-12-15] MEDS: enoxaparin 40 mg/0.4 mL Syringe SUBCUT (09:04)
[2019-12-15] MEDS: prasugrel 10 MG Tablet PO (09:04)
[2019-12-15] MEDS: metoprolol succinate ER (24 HR) 25 mg Tablet 12.5 MG PO (09:05)
--- NOTE | 2019-12-15 09:13 | XR_ITS ---
WS: [id number] XR chest 1V portable [id number] REASON FOR EXAM: elevated WBC with cough FINDINGS: Comparisons were made to December 12, 2019. The endotracheal tube is been removed. There is calcified granulomas off the hilum. [place] the heart is not grossly enlarged. There is no definite pneumonia, pleural effusion, pulmonary edema, The lung [place] are moderately hypoaerated. IMPRESSION: Hypoaerated lungs. No definite active infiltrates
[2019-12-15] MEDS: magnesium hydroxide 30 mL UDC PO (10:05)
--- NOTE | 2019-12-15 14:42 | PM.PN ---
Subjective Subjective: Interval history: Patient spiked 103 fever last night. WBC has gone down otherwise denies any shortness of breath or chest pain. Medications: Reviewed: Yes Vitals/I&O/Wt Last Vital Signs Temp 99.0 F 12/15/19 12:00 Pulse 85 12/15/19 11:12 Resp 22 H 12/15/19 12:14 BP 118/59 12/15/19 11:12 Pulse Ox 96 12/15/19 11:12 12/14/19 12/15/19 12/15/19 22:59 06:59 14:59 Intake Total 290 / 820 50 / 870 600 / 600 Output Total 875 / 1550 750 / 2300 700 / 700 Balance -585 / -730 -700 / -1430 -100 / -100 Physical Exam Narrative: EXAM NARRATIVE: GENERAL: Patient is alert, awake and oriented x3 but moderately NECK: No jugular vein distension. HEENT: No cyanosis. No icterus. No pallor. HEART: Regular S1 and S2. No murmur, rub or gallop. LUNGS: Inspiratory crackles bilaterally. ABDOMEN: Soft, nontender and nondistended. Positive bowel sounds. No guarding, rebound or tenderness. CENTRAL NERVOUS SYSTEM: Grossly nonfocal. EXTREMITIES: Lower extremities without edema bilaterally. Urinary Catheter Management^: Page: Cath Placed During This Visit: yes, but has since been removed by the nurse Reason for Continuing Indwelling Catheter: Decision to DC Catheter Urinary Catheter Date of Insertion: 12/12/19 Urinary Catheter Time of Insertion: 15:40 Date Urinary Catheter Removed: 12/13/19 Time Urinary Catheter Discontinued: 10:30 Data : 12/15/19 07:55 12/15/19 07:55 Micro: Microbiology 12/12/19 17:45 Gram Stain - Final Sputum - Endotracheal Tube Aspirate Sputum Culture - Final A&P Assessment and plan (1) ST elevation (STEMI) myocardial infarction: Stable cardiovascular xiao moderately depressed LV function. Continue current regimen. Status: Acute Qualifiers: Involved coronary artery: unspecified coronary artery Qualified Code(s): I21.3 - ST elevation (STEMI) myocardial infarction of unspecified site (2) Cardiac arrest: Resolved most likely secondary to STEMI Status: Acute (3) Cardiogenic shock: Improved and resolved. Status: Acute (4) Aspiration into airway: Patient spiked fever most likely due to aspiration. Continue antibiotics for anaerobic coverage. I will obtain x-ray chest today. WBC has improved. Status: Acute Qualifiers: Encounter type: initial encounter Qualified Code(s): T17.908A - Unspecified foreign body in respiratory tract, part unspecified causing other injury, initial encounter Attestations Medical Necessity Statement*: Require continuation hospitalization for above defined care. Coding Level of Care Code Acute [place] Worker Supervisor for [facility] Diagnoses ST elevation (STEMI) myocardial infarction I21.3 Involved coronary artery: unspecified coronary artery Cardiac arrest I46.9 Cardiogenic shock R57.0 Aspiration into airway T17.908A Encounter type: initial encounter
--- NOTE | 2019-12-15 20:02 | PC.NURSE ---
Received report from ANEL Gan at 1915. Performed assessment as documented. Found patient's IV to right AC to be leaking and burning as reported by patient. Placed medication on pause and removed IV catheter. IV was intact. Cleaned and dressed site. Unable to obtain IV access at this time. Placed request to ER to have someone to use the ultrasound for IV access. Patient reports feeling better overall. Did report to Dr Lea earlier today about some blood in the stool. stopped Lovenox injections at that time.
[2019-12-15] MEDS: atorvastatin 40 mg Tablet 80 MG PO (20:46)
--- NOTE | 2019-12-15 21:41 | PC.NURSE ---
Informed Dr Couch that patient's IV had began leaking and had to be removed. Many attempts by several RN's to regain access remained. No one available to use ultrasound for IV access. Received orders to stop Zosyn and to NOT start a new IV.
[2019-12-16] VITALS (7 sets, daily range): BP systolic 108–134; BP diastolic 68–74; PULSE 76–95; RESP 16–20; TEMP 36.7–37.4; O2SAT 90–92
--- NOTE | 2019-12-16 07:45 | PC.NURSE ---
Shift change bedside report ANEL Beltre and this signee assessed pt during initial rounding. Pt denies any pain, discomfort, lungs clear upon auscultation, pedal pulses palpable +3. No hematoma noted on site.
[2019-12-16] MEDS: prasugrel 10 MG Tablet PO (08:55)
[2019-12-16] MEDS: metoprolol succinate ER (24 HR) 25 mg Tablet 12.5 MG PO (08:55)
[2019-12-16] MEDS: oxyCODONE-APAP 5-325 mg Tablet PO (08:55)
[2019-12-16] MEDS: pantoprazole DR 40 mg Tablet PO (08:55)
--- NOTE | 2019-12-16 10:27 | PM.DCS ---
Discharge Providers Date of Admission: 12/12/19 16:36 Date of Discharge: December 16, 2019 Attending Provider at Admission: Monie Lea MD Attending Provider at Discharge: Faith Couch MD Diagnoses at Discharge Discharge Diagnosis (1) ST elevation (STEMI) myocardial infarction: Status: Acute Problem details: He is doing well post drug-eluting stent placement to circumflex. Continue aspirin, Effient, Lipitor and metoprolol. Advised to closely monitor blood pressure and heart rate for next 2 weeks. Qualifiers: Involved coronary artery: unspecified coronary artery Qualified Code(s): I21.3 - ST elevation (STEMI) myocardial infarction of unspecified site (2) Cardiac arrest: Status: Acute (3) Cardiogenic shock: Status: Acute (4) Aspiration into airway: Status: Acute Qualifiers: Encounter type: initial encounter Qualified Code(s): T17.908A - Unspecified foreign body in respiratory tract, part unspecified causing other injury, initial encounter Reason for Visit Reason for Visit: Post-code/STEMI Brief History: Leticia is a pleasant 59-year-old man who was brought by EMS on 12 December 2019 after having out of hospital cardiac arrest. 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 He had a witnessed collapse followed by Lashonda love as the presenting rhythm requiring cardioversion. He was found to have infero posterior ST elevation [place] with ventricular fibrillation and was resuscitated with multiple cardioversions and CPR. He was intubated in the ER. STEMI alert was called and patient was given IV amiodarone and was taken to the [facility]. Hospital Course Hospital Course: Coronary angiogram was performed via right femoral approach by Dr. Lea on 12 December 2019 and patient was found to have chronically occluded mid RCA and subtotal occlusion of large dominant circumflex that was highly calcified and was thought to be the culprit lesion. He underwent balloon angioplasty followed by drug-eluting stent placement. LAD starts from separate ostia and did not have any significant disease. He was started on Levophed overnight. He was extubated the next day and weaned off of pressor. He spiked fever on 13 December and then again on 14 December and was empirically started on Zosyn for aspiration pneumonia. He was transferred out of unit and has done well since then. Overnight and this morning patient has had not had any temperature spikes. He denies having any shortness of breath nausea vomiting. His only complaint this morning is retrosternal chest discomfort post CPR. He is eager to go home. Discharge Summary: Patient was advised on compliance with his medications and advised to keep a blood pressure and heart rate log for next 2 weeks. Diet and activity restrictions were discussed with patient in detail. Physical Exam Narrative: EXAM NARRATIVE: GENERAL: Obese man lying in bed in no acute distress, appears older than stated age HEENT: Extraocular movement intact. Pupils equal round reactive to light. No pallor or icterus. NECK: central trachea, No JVD. No carotid bruit. CARDIOVASCULAR SYSTEM: S1-S2 regular. No S3 or S4 present. No murmur rubs or gallops. RESPIRATORY SYSTEM: Chest clear to auscultation. No wheezes, rhonchi or rubs heard. No use of accessory muscles. ABDOMEN: Soft, nontender and nondistended. Normal bowel sounds present. EXTREMITIES: No cyanosis or clubbing. No edema. BEAUTY OPERATOR: Patient is alert oriented ?3. No focal neurological deficits. Urinary Catheter Management^: Page: Cath Placed During This Visit: yes, but has since been removed by the nurse Reason for Continuing Indwelling Catheter: Decision to DC Catheter Urinary Catheter Date of Insertion: 12/12/19 Urinary Catheter Time of Insertion: 15:40 Date Urinary Catheter Removed: 12/13/19 Time Urinary Catheter Discontinued: 10:30 Discharge Data Data Completed and Pending: Completed Studies During Hospitalization Category Date Time Status C[employer] request for service Stat Exams 12/12/19 15:34 Completed CXRP [XR chest 1V portable [id number]] S tat Exams 12/15/19 09:13 Completed XR chest 1V latoya ble [id number] Stat Exams 12/12/19 17:12 Completed CV echo limited 9 [id number] Stat Ultrasound 12/12/19 16:49 Completed Pending at discharge Category Date Time Status Basic Metabolic P rosa Routine Lab 12/16/19 10:12 Ordered Lipid Panel Routi ne Lab 12/16/19 10:12 Ordered PROTHROMBIN (FACT OR II) 13372K Stat Lab 12/12/19 21:40 Received CV echo complete* [id number] Routine Ultrasound 12/14/19 Taken Imaging^: Echo: Radiologist's impression: TTE (12/13/19) CONCLUSIONS Please note that this is a limited echo to assess LV function post cardiac arrest and intubated patient. Normal left ventricular cavity size. Moderately decreased left ventricular systolic function. Left ventricular ejection fraction is estimated at 45 %. Left ventricular lateral wall hypokinesis noted. Vitals: Last Vital Signs Temp 98.1 F 12/16/19 07:35 Pulse 89 12/16/19 07:35 Resp 18 12/16/19 08:55 BP 124/74 12/16/19 07:35 Pulse Ox 90 12/16/19 08:55 Discharge Plan Discharge Patient Disposition: Home, Self-Care Condition: Stable Prescriptions: New oxycodone-acetaminophen 5-325 mg Tablet 1 - 2 tab PO Q6H PRN (Reason: Moderate To Severe Pain) 7 Days Qty: 20 RF: 0 nitroglycerin [Nitrostat] 0.4 mg Tablet, Sublingual 0.4 mg sublingual Q5M PRN (Reason: Chest Pain) 30 Days Qty: 25 RF: 0 prasugrel 10 mg Tablet 10 mg PO DAILY 30 Days Qty: 30 RF: 0 atorvastatin 40 mg Tablet 80 mg PO BEDTIME 30 Days Qty: 60 RF: 0 metoprolol succinate 25 mg Tablet Extended Release 24 Hr 12.5 mg PO DAILY 30 Days Qty: 30 RF: 0 lisinopril 2.5 mg Tablet 2.5 mg PO DAILY 30 Days Qty: 30 RF: 0 aspirin [Adult Aspirin Regimen] 81 mg tablet,delayed release (DR/EC) 81 mg PO DAILY Qty: 30 RF: 0 Continued Zoloft 100 mg tablet 100 mg PO DAILY RF: 0 Discharge Orders: Discharge Order (Routine); Ordered 12/16/19 Ordered By: Faith Couch Other Ambulatory Orders: Basic Metabolic Panel (Routine) Timeframe: 1 Week Facility: [facility] - Location: Lab - Main Lab Ordered By: Faith Couch Referrals: Monie Lea MD [Physician] - 6 Weeks ([facility] will also be setting a cardiology followup with Dr. Lea to be seen in approx 6 weeks.) Melisa Wing FNP [Nurse Practitioner] - 1 week ([facility] will be calling to set a Post Procedure site check and BMP Bloodwork to be done in 1 week. If you don't hear from them by Wednesday, please give them a call. Thank you) Discharge Diet: Cardiac and Low Fat Discharge Activity: Increase activity as tolerated Patient Instructions: Left Heart Catheterization (DC), Coronary Angioplasty (DC) Activity Restrictions/Additional Instructions: Do not lift anything more than 10 lbs for 1 week. Keep the site dry and clean Take medications as prescribed and follow up as scheduled. Discharge Attestations Time Spent in Discharge Care*: greater than 30 min Specific Discharge Activities: Specific discharge activities: educating patient, documenting/other paperwork and evaluating patient/reviewing data Status at Discharge: Cognitive status at discharge: cognitively intact, Behavioral status at discharge: cooperative, Overall status at discharge: patient is progressing back to baseline Quality Metrics Clinical Quality Measures During this hospital stay, did patient experience: AMI Clinical Trial Participant: No Contraindication to aspirin (AMI): Aspirin given Contraindication to statin: Statin prescribed Contraindication to PCI: PCI performed Coding Level of Care Code Acute Hospice Nurse for Mandeep Simmons Diagnoses ST elevation (STEMI) myocardial infarction I21.3 Involved coronary artery: unspecified coronary artery Cardiac arrest I46.9 Cardiogenic shock R57.0 Aspiration into airway T17.908A Encounter type: initial encounter
[2019-12-16] MEDS: amoxicillin-clav 875-125 mg Tablet 1 TAB PO (10:31)
[2019-12-16 11:00] LABS: Anion Gap 12.9 (5-19); Blood Urea Nitrogen 15 mg/dL (6-20); Calcium 9.2 mg/dL (8.5-10.5); Carbon Dioxide 27 mmol/L (22-29); Chloride 102 mmol/L (98-107); Cholesterol 163 mg/dL (0-200); Glucose 96 mg/dL (65-115); HDL Cholesterol 44 mg/dL (60-100); LDL Cholesterol Calculated 100 mg/dL (50-129); LDL HDL Ratio 2.27 RATIO (0.00-3.22); Osmolality Calculated 282 mOsm/kg (285-295); Potassium 3.9 mmol/L (3.5-5.1); Sodium 138 mmol/L (136-145); Triglycerides 93 mg/dL (0-150)
--- NOTE | 2019-12-16 11:27 | PC.NURSE ---
Pt has been up in room and to bathroom Oxygen in room air is between 92-93%. notified.
[2019-12-16] MEDS: lisinopril 2.5 mg Tablet PO (11:52)
--- NOTE | 2019-12-16 12:20 | PC.NURSE ---
Called Pt stated to call his Marily for a ride. Verified to if she picked up his new prescriptions at [facility] and if their is any difficulty getting his prescriptions. Per he got everything especially the Prasugrel drug. Informed i have an Effient coupon and Rx script of his Oxycodone given to pt.
--- NOTE | 2019-12-16 13:05 | PC.NURSE ---
Discharge to home Instructed pt to follow-up with his primary doctor and continuous towel roller as discussed. Educated pt on new medications actions, timing, dosing, timing, frequency and their possible side effects. Educated pt on post heart attack stoplight, reportable signs and symptoms and prevention of complications post heart attack and cardiac arrest. Educated pt as well on cardiac rehab-to check his BP and HR regularly twice a day, s/s of site infections and activity restrictions post angiogram. Pt verbalizes understanding and able to teach back some of the discussion. Teaching materials provided to pt as well as discharge packet. Effient and Rx script on Oxycodone handed to pt. Ushered pt via wheelchair.
--- NOTE | 2019-12-16 13:05 | PC.NURSE ---
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 Educated pt on his new prescribed medications actions, dosing, timing and frequency, most importantly their possible side effects. Educated pt on post heart attack stoplight- reportable signs and symptoms and prevention of complications after heart attack and cardiac arrest. Discuss to pt as well on cardiac rehab. Educated pt on post Left heart cath activity restrictions, s/s of infection. He verbalizes understanding and teaches back some of the teachings that were discussed. Discharge papers provided to pt. Effient coupon and heart stent card provided to pt. Ushered pt via wheelchair.
== END 2019-12-16 13:04 | disposition home or self-care (01) | DRG 246 ==
LOC: ER 15:37 → CCL 15:46 → ICU 16:37 → CSU 12-13 19:26
PROVIDERS: Family Medicine; Internal Medicine Cardiovascular Disease; Admitting Provider Internal Medicine Cardiovascular Disease; Visit Provider Internal Medicine Cardiovascular Disease
PROC: 027034Z Dilation of Coronary Artery, One Artery with Drug-eluting Intraluminal Device, Percutaneous Approach (ICD-10-PCS; principal; 2019-12-12 15:15)
PROC: 027034Z Dilation of Coronary Artery, One Artery with Drug-eluting Intraluminal Device, Percutaneous Approach (ICD-10-PCS; 2019-12-12 15:15)
DX: I21.11 ST elevation (STEMI) myocardial infarction involving right coronary artery (principal); I46.9 Cardiac arrest, cause unspecified; R57.0 Cardiogenic shock; T17.908A Unspecified foreign body in respiratory tract, part unspecified causing other injury, initial encounter
CPT/HCPCS: 12345; 31500; 36415; 36600; 51702; 71045; 80048; 80051; 80053; 80061; 82550; 82553; 82810; 83036; 83880; 83986; 84484; 85025; 85210; 85610; 85730; 87070; 87205; 92921; 93005; 93306; 93308; 93454; 94002; 94799; 96372; 96375; 99283; A4570; C1725; C1769; C1874; C1887; C1894; C9113; C9606; J0171; J0282; J0330; J1644; J1650; J2001; J2270; J2405; J2543; J2704; J3246; J3475; J3480; J3490; J7030; Q9967

== ENCOUNTER → 2019-12-21 12:09 | Outpatient (BNVA) | payer OTHER, SELFPAY | PROVIDERS: PCP Family Medicine; Visit Provider Nurse Practitioner Family | DX: I25.10 Atherosclerotic heart disease of native coronary artery without angina pectoris (principal) | CPT/HCPCS: 80048 ==

== ENCOUNTER → 2020-02-08 12:25 | Outpatient (BNVA) | payer OTHER, SELFPAY | PROVIDERS: PCP Family Medicine; Visit Provider Nurse Practitioner Family | DX: I25.10 Atherosclerotic heart disease of native coronary artery without angina pectoris (principal); I21.3 ST elevation (STEMI) myocardial infarction of unspecified site; E78.5 Hyperlipidemia, unspecified; I25.2 Old myocardial infarction | CPT/HCPCS: 80048; 84443 ==

== ENCOUNTER 2020-03-11 14:45 | Outpatient (CLI) | payer OTHER, SELFPAY ==
--- NOTE | 2020-03-11 15:00 | USCV_ITS ---
Paul Eduardo Age: 59 Gender: M : 1960 Exam Date: 03/11/2020 15:20 Ordering Phys: Meilsa Wing Technologist: Lashonda Lehman [place] [facility] [place]ication: POST MA WITH CHF BP: / HR: 54 Rhythm: Sinus Technical Quality: Adequate MEASUREMENTS (Male / Female) Normal Values 2D ECHO LV Diastolic Diameter PLAX 4.2 cm 4.2 - 5.9 / 3.9 - 5.3 cm LV Systolic Diameter PLAX 3.4 cm LV Chamber Size 3.7 cm IVS Diastolic Thickness 1.2 cm 0.6 - 1.0 / 0.6 - 0.9 cm IVS Systolic Thickness 1.5 cm LVPW Diastolic Thickness 1.2 cm 0.6 - 1.0 / 0.6 - 0.9 cm LVPW Systolic Thickness 1.4 cm RV Chamber Size 3.6 cm LVOT Diameter 2.0 cm LV Ejection Fraction 2D Teich 40.1 % LV Ejection Fraction MOD 2C 49.4 % LV Ejection Fraction 2C AL 56.1 % LA Diameter 3.6 cm LA Width 3.2 cm LA Height 4.4 cm RA Width 3.7 cm RA Height 3.5 cm Aorta at Sinotubular Diameter 2.9 cm M-MODE LV Diastolic Diameter MM 5.1 cm 4.2 - 5.9 / 3.9 - 5.3 cm LV Systolic Diameter MM 3.3 cm LV Ejection Fraction MM Teich 65.2 % IVS Diastolic Thickness MM 1.1 cm 0.6 - 1.0 / 0.6 - 0.9 cm IVS Systolic Thickness MM 1.5 cm LVPW Diastolic Thickness MM 1.4 cm 0.6 - 1.0 / 0.6 - 0.9 cm LVPW Systolic Thickness MM 1.9 cm RV Diastolic Diameter MM 2.3 cm Aortic Annulus Diameter 3.3 cm LA Ao Ratio MM 1.1 MV E Point Septal Separation 0.7 cm DOPPLER AV Peak Velocity 127.0 cm/s LVOT Peak Velocity 95.0 cm/s AV Area Cont Eq vti 2.4 cm squared AV Area Cont Eq pk 2.4 cm squared MV Area PHT 4.3 cm squared Mitral E to A Ratio 1.3 MV E' Velocity 10.0 cm/s Mitral E to MV E' Ratio 8.5 Mitral E to LV E' Lateral Ratio 7.1 Mitral E to LV E' Septal Ratio 10.9 TR Peak Velocity 174.5 cm/s TR Peak Gradient 12.2 mmHg TR Mean Velocity 149.2 cm/s TR Mean Gradient 9.2 mmHg TR Velocity Time Integral 45.4 cm TV Peak E Velocity 79.0 cm/s Right Atrial Pressure 3.0 mmHg Pulmonary Artery Systolic Pressu 15.2 mmHg PV Peak Velocity 56.0 cm/s RV Acceleration Time 0.2 s RV Ejection Time 0.3 s RV AcT/ET 0.5 FINDINGS Left Ventricle Normal left ventricular cavity size. Normal left ventricular systolic function. No regional wall motion abnormalities. Left ventricular ejection fraction is estimated at 60 %. Grade II/IV diastolic dysfunction, moderately elevated filling pressures. Right Ventricle The right ventricle is normal in size and function. Right Atrium The right atrium is normal in size. Left Atrium The left atrium is normal in size. Mitral Valve Structurally normal mitral valve without significant stenosis or prolapse. There is no mitral regurgitation. Aortic Valve Moderate aortic valve calcification. No aortic valve stenosis. No aortic valve regurgitation. Tricuspid Valve Structurally normal tricuspid valve without significant stenosis or regurgitation. Pulmonary artery systolic pressure is normal. Pulmonic Valve Structurally normal pulmonic valve without significant stenosis. There is no pulmonic regurgitation. Pericardium Normal pericardium without effusion. Aorta Normal ascending aorta dimension. CONCLUSIONS 1-Normal left ventricular cavity size. Normal left ventricular systolic function. No regional wall motion abnormalities. Left ventricular ejection fraction is estimated at 60 %. Grade II/IV diastolic dysfunction, moderately elevated filling pressures. 2-There is no pericardial effusion. 3-No significant valve abnormalities. 4-Pulmonary artery systolic pressure is within normal limits. 5-Right atrial pressure is around 5 mm of mercury. 6-When compared to the prior echocardiogram dated 12/14/2019 left ventricle ejection fraction has improved from moderately reduced 45% to normal 60% now. Monie Lea MD (Electronically Signed) Final Date: 12 March 2020 17:24 S
== END 2020-03-11 14:46 | disposition home or self-care (01) ==
LOC: US 14:47
PROVIDERS: PCP Family Medicine; Visit Provider Nurse Practitioner Family
DX: I25.2 Old myocardial infarction (principal); I50.9 Heart failure, unspecified; I51.81 Takotsubo syndrome
CPT/HCPCS: 93306

== ENCOUNTER 2021-10-29 06:47 | Outpatient (CLI) | payer OTHER, SELFPAY ==
--- NOTE | 2021-10-29 07:15 | USCV_ITS ---
Paul Eduardo Age: 61 Gender: M : 1960 Exam Date: 10/29/2021 07:01 Ordering Phys: Melsia Wing Technologist: RADHIKA [place] [facility] [place] Indication: DIASTOLIC CHF BP: 130 / 80 HR: 61 Rhythm: Sinus Technical Quality: Adequate MEASUREMENTS (Male / Female) Normal Values 2D ECHO LV Diastolic Diameter PLAX 4.5 cm 4.2 - 5.9 / 3.9 - 5.3 cm LV Systolic Diameter PLAX 3.6 cm IVS Diastolic Thickness 1.4 cm 0.6 - 1.0 / 0.6 - 0.9 cm IVS Systolic Thickness 2.0 cm LVPW Diastolic Thickness 1.2 cm 0.6 - 1.0 / 0.6 - 0.9 cm LVPW Systolic Thickness 1.5 cm LVOT Diameter 2.0 cm LV Ejection Fraction 2D Teich 31.9 % LV Ejection Fraction MOD 2C 51.4 % LV Ejection Fraction 2C AL 48.9 % LA Diameter 3.6 cm LA Width 3.3 cm LA Height 4.1 cm RA Width 3.5 cm RA Height 3.3 cm Aorta at Sinotubular Diameter 2.5 cm M-MODE Aortic Annulus Diameter 2.7 cm LA Ao Ratio MM 1.2 MV E Point Septal Separation 0.6 cm DOPPLER AV Peak Velocity 122.0 cm/s LVOT Peak Velocity 101.0 cm/s AV Area Cont Eq vti 2.5 cm squared AV Area Cont Eq pk 2.6 cm squared MV Peak Velocity 105.0 cm/s MV Area PHT 2.2 cm squared Mitral E to A Ratio 0.7 MV E' Velocity 37.0 cm/s Mitral E to MV E' Ratio 6.3 Mitral E to LV E' Lateral Ratio 5.3 Mitral E to LV E' Septal Ratio 7.7 TR Peak Velocity 152.9 cm/s TR Peak Gradient 9.4 mmHg TR Mean Velocity 102.0 cm/s TR Mean Gradient 4.9 mmHg TR Velocity Time Integral 29.8 cm TV Peak E Velocity 46.0 cm/s Right Atrial Pressure 3.0 mmHg Pulmonary Artery Systolic Pressu 12.4 mmHg PV Peak Velocity 72.0 cm/s RV Acceleration Time 0.1 s RV Ejection Time 0.3 s RV AcT/ET 0.5 FINDINGS Left Ventricle Mildly increased left ventricular cavity size. Normal left ventricular wall thickness. Lower limit of normal LV function, EF 50-55%. Grade I/IV diastolic dysfunction (abnormal relaxation filling pattern), normal to mildly elevated filling pressures. Right Ventricle Normal right ventricular size and systolic function. Normal right ventricular systolic pressure. Right Atrium The right atrium is normal in size. Left Atrium The left atrium is normal in size. Mitral Valve Structurally normal mitral valve. Trace mitral valve regurgitation. Aortic Valve Structurally normal aortic valve without significant sclerosis or stenosis. There is no aortic regurgitation. Tricuspid Valve Structurally normal tricuspid valve. Trace tricuspid valve regurgitation. Pulmonic Valve Structurally normal pulmonic valve without significant stenosis. There is no pulmonic regurgitation. Pericardium Normal pericardium without effusion. Aorta Normal ascending aorta dimension. CONCLUSIONS Mildly increased left ventricular cavity size. Normal left ventricular wall thickness. Lower limit of normal LV function, EF 50-55%. Grade I/IV diastolic dysfunction (abnormal relaxation filling pattern), normal to mildly elevated filling pressures. Structurally normal mitral valve. Trace mitral valve regurgitation. Dr. Mc Vernon MD (Electronically Signed) Final Date: 29 Oct 2021 09:10 S
== END 2021-10-29 06:48 | disposition home or self-care (01) ==
PROVIDERS: PCP Family Medicine; Visit Provider Nurse Practitioner Family
DX: I50.30 Unspecified diastolic (congestive) heart failure (principal)
CPT/HCPCS: 93306

== ENCOUNTER → 2022-10-23 11:12 | Outpatient (BNVA) | payer OTHER, SELFPAY | PROVIDERS: PCP Nurse Practitioner Family; Referring Provider Nurse Practitioner Family; Visit Provider Student in an Organized Health Care Education/Training Program | DX: G56.03 Carpal tunnel syndrome, bilateral upper limbs (principal); R20.0 Anesthesia of skin; R20.2 Paresthesia of skin | CPT/HCPCS: 36415; 73110; 80048; 85025 ==

== ENCOUNTER 2022-11-04 06:33 | Day surgery (SDC) | payer OTHER, SELFPAY ==
[2022-11-03 11:56] VITALS: BMI 32.3
[2022-11-04] VITALS (10 sets, daily range): BP systolic 110–147; BP diastolic 68–88; PULSE 71–96; RESP 16; TEMP 36.2–36.3; O2SAT 94–98
[2022-11-04] MEDS: ketorolac 30 mg/mL INJ IVP (06:56)
[2022-11-04] MEDS: sodium chloride 0.9% 1,000 ML 30 ML IV (06:56)
[2022-11-04] MEDS: acetaminophen 1,000 MG/100 ML PIGGYBACK 400 MG IV (06:57)
--- NOTE | 2022-11-04 07:05 | W.PM.OPSUD ---
Surgery/Procedure H&P Update DATE OF PROCEDURE: November 04, 2022 DATE H&P PERFORMED: 10/23/22 CHANGES TO PREVIOUS DOCUMENTATION: None. No changes to HPI or health since office visit. PREOP DIAGNOSIS: Bilateral Carpal Tunnel syndrome PRIMARY INDICATION FOR PROCEDURE: Bilateral Carpal Tunnel syndrome PLANNED PROCEDURE: Operation Date: 11/04/22 08:00 Proposed Procedures p Carpal Tunnel Release(Bilateral) - Stewart De León DO
--- NOTE | 2022-11-04 08:09 | ANES.PREANE2 ---
Pre-Anesthetic Assessment Height/Weight: Height 1.78 m Weight 102.058 kg Temp Pulse Resp BP Pulse Ox O2 Del Method 97.4 F L 71 16 110/79 97 Room Air 11/04/22 06:48 11/04/22 06:48 11/04/22 06:48 11/04/22 06:48 11/04/22 06:48 11/04/22 06:49 Preop Diagnosis: Bilateral Carpal Tunnel syndrome Operation Date: 11/04/22 08:00 Proposed Procedures p Carpal Tunnel Release(Bilateral) - Stewart De León DO Familial anesthetic complications: none Was Beta Tim taken within 24 hours: N/A Was Clonidine taken within 24 hours: N/A Last intake: Intake Last Liquid Date 11/03/22 Last Liquid Time 20:00 Last Solid Date 11/03/22 Last Solid Time 12:00 Social No alcohol and No tobacco Exam alert, oriented x 3, clear to auscultation bilaterally and regular rate & rhythm Airway Submandibular: within normal limits Cervical ROM: within normal limits Mallampati: Class II Dentition: full CV/HEM Arrythmia, Coronary Artery Disease, Hypertension and Myocardial Infarction Metabolic Hyperlipidemia and Morbid Obesity Anesthetic Plan ASA status: 3 Anesthesia: Choice Medications/Allergies Home Medications Medication Instructions Recorded Confirmed Last Taken Type sertraline 100 mg tablet (Zoloft) 100 mg PO DAILY 12/13/19 11/03/22 11/04/22 05:20 History aspirin 81 mg tablet,delayed 81 mg PO DAILY #30 tabs 12/16/19 11/03/22 11/02/22 07:00 Rx release (Adult Aspirin Regimen) metoprolol succinate 25 mg 12.5 mg PO DAILY 30 days #45 tabs 01/10/20 11/03/22 11/04/22 05:20 Rx tablet,extended release 24 hr meloxicam 7.5 mg tablet 7.5 mg PO DAILY 11/11/20 11/03/22 Unknown History nitroglycerin 0.4 mg sublingual 0.4 mg sublingual Q5M PRN chest 03/10/22 11/03/22 Unknown Rx tablet (Nitrostat) pain #30 tabs ezetimibe 10 mg tablet 10 mg PO DAILY #90 tabs 09/17/22 11/03/22 11/02/22 Rx losartan 25 mg tablet 25 mg PO DAILY 0311/03/22 11/03/22 History ezetimibe 10 mg tablet (Zetia) 10 mg PO DAILY #90 tabs 10/01/22 10/23/22 Unknown Rx atorvastatin 80 mg tablet 80 mg PO BEDTIME #90 tabs 10/15/22 11/03/22 11/02/22 Rx prasugrel 10 mg tablet 10 mg PO DAILY #90 tabs 10/15/22 11/03/22 11/02/22 Rx Allergies Allergy/AdvReac Type Severity Reaction Status Date / Time No Known Allergies Allergy Verified 10/23/22 10:59 Current Medications Generic Name Dose Route Start Last Admin Trade Name Freq PRN Reason Stop Dose Admin Sodium Chloride 1,000 mls @ 30 mls/hr 11/04/22 06:45 11/04/22 06:56 Sodium Chloride 0.9% IV 11/05/22 06:44 30 mls/hr .Q24H WILLA Administration PFSH Anesthesia Medical History Anxiety CAD (coronary artery disease) Cardiac arrest Depression Diastolic CHF Diastolic heart failure Hyperlipidemia Hypertension Palpitation Family History Father CAD (coronary artery disease) Family history of premature coronary artery disease Hyperlipidemia Hypertension Grandfather CAD (coronary artery disease) Mother Hyperlipidemia Hypertension Denies family history of Diabetes Clotting disorder Dementia Psychiatric illness Chronic kidney disease (CKD) Suicide Anesthesia complication Bleeding disorder Lung disease Cancer Stroke Social History Smoking and tobacco status: former smoker Alcohol intake: current Alcohol intake frequency: holidays/special occasions only Alcohol type: beer Substance/Drug Use: never Data Anesthesia Cardiac Studies: Echocardiogram 10/29/21 Echocardiogram Limited Views 12/12/19 Echocardiogram Ultrasound 03/11/20
[2022-11-04] MEDS: ceFAZolin 2,000 MG in sodium chloride 0.9% (plus) 50 ML 100 MG IV (08:16)
[2022-11-04] MEDS: lidocaine-epi 1% 20 mL INJ INJECTION (08:35)
--- NOTE | 2022-11-04 09:11 | SUR.OPER ---
esmark tourniquet to right arm from [id number]
--- NOTE | 2022-11-04 09:26 | PM.OP2 ---
Brief Operative Note Date of procedure: 11/04/22 Pre-op diagnosis: Bilateral carpal tunnel syndrome Post-op diagnosis: same Procedure Done: Bilateral carpal tunnel release Surgeon: Stewart De León Estimated blood loss (mL): 5 Complications: None Post-op Plan: Patient taken to PACU in stable condition recovering well. Patient will receive appropriate discharge instructions as well as pain medication postoperatively. We will follow-up in the orthopedic office in 2 weeks for incision check and suture removal. Patient understands agrees with current plan. All questions answered. Condition: stable Disposition: same day Coding Level of Care Code Acute Code for Mandeep Simmons
--- NOTE | 2022-11-04 09:27 | PM.PACU ---
PACU note Narrative: Patient taken to PACU in stable condition recovering well. Dressings are in place clean dry and intact. Fingertips are warm well-perfused brisk capillary refill less than 2 seconds. Able to wiggle fingers bilaterally. Decreased sensation secondary to local anesthesia and carpal tunnel syndrome. Exam: awake Disposition: discharged
--- NOTE | 2022-11-04 09:27 | PM.OP ---
Operative Report Date of procedure: November 04, 2022 Pre-op diagnosis: Preop Diagnosis Bilateral Carpal Tunnel syndrome Procedure: Post-op diagnosis: Same Procedure done: Left carpal tunnel release Right carpal tunnel release Surgeon: Stewart De León DO Estimated blood loss: 5 mL Left upper extremity -9 minutes Right upper extremity?13 minutes Complications: None Findings: See operative report narrative Condition: stable Disposition: same day Brief History: Patient is a pleasant 62-year-old male with bilateral carpal tunnel syndrome confirmed with nerve conduction studies from years ago as well as physical exam findings.? We talked about treatment options. Patient's failed conservative treatment. Through shared decision making she like to proceed with bilateral carpal tunnel release surgery.? We talked about the risk benefits complication alternatives surgical treatment options.? Understanding risk of surgery patient agrees to proceed with surgical intervention all questions answered.? Consent reviewed and signed with patient. Procedure: Patient seen and evaluated in the preoperative holding area.? Consent was reviewed and signed with patient.? Correct extremities were marked.? Patient was seen evaluated by the anesthesia department once cleared for surgery was brought back to the operative suite.? Placement was placed onto the OR table in supine position all bony prominences were well-padded patient properly secured to the bed.? Bilateral upper extremity was then placed onto an armboard.? A nonsterile tourniquet was applied to the left upper arm.? Patient underwent anesthesia per the anesthesia department.? Patient's bilateral upper extremity was then prepped and draped in standard orthopedic fashion.? Final timeout performed.? Patient received appropriate preoperative antibiotics. Under sterile aseptic technique patient received local anesthesia over the preplanned carpal tunnel incision sites bilaterally.? Esmarch was used to exsanguinate the left upper extremity and tourniquet insufflated to 250 mmHg. A standard mini open carpal tunnel incision was made.? Starting distally at Ponce's cardinal line in line with the fourth ray extending proximally distal to the wrist crease centered over the carpal tunnel.? Sharp scalpel incision was made through skin and subcutaneous tissue.? Self-retaining retractor was placed and the palmar fascia was identified.? This was then split longitudinally and direct visualization of the transverse carpal ligament was then made.? I then utilizing scalpel feathered through the transverse carpal ligament until I entered the floor of the transverse carpal tunnel ligament into the carpal tunnel.? Next I switched to dissection scissors and completed my release of the transverse carpal ligament distally with care to protect the recurrent motor branch.? I completely released into the palmar fat and until no entrapment was noted distally.? Care was made to protect the superficial palmar arch during my distal dissection.? Next I then placed a [place] underneath the transverse carpal tunnel ligament to protect the contents of the carpal tunnel and subsequently utilizing dissection scissors under loupe magnification completely released the transverse carpal ligament proximally into the median antebrachial fascia.? Care was made to protect the palmar cutaneous branch by keeping my scissors curved ulnarly.? Once completely released, I then placed my [place] and had appropriate decompression of the carpal tunnel proximally as well as distally.? I then inspected the contents of the carpal tunnel which showed an hourglass shape of the median nerve showing its compression.? No masses were noted.? Tendons appeared healthy.? Wound was then thoroughly irrigated.? Tourniquet deflated.? Hemostasis satisfactory with bipolar electrocautery.? I then closed the incision with interrupted nylon stitches.? Xeroform 4 x 4's and a bulky soft dressing was applied to the left upper extremity.? Esmarch was used to exsanguinate the right upper extremity and Esmarch tourniquet applied. A standard mini open carpal tunnel incision was made.? Starting distally at Ponce's cardinal line in line with the fourth ray extending proximally distal to the wrist crease centered over the carpal tunnel.? Sharp scalpel incision was made through skin and subcutaneous tissue.? Self-retaining retractor was placed and the palmar fascia was identified.? This was then split longitudinally and direct visualization of the transverse carpal ligament was then made.? I then utilizing scalpel feathered through the transverse carpal ligament until I entered the floor of the transverse carpal tunnel ligament into the carpal tunnel.? Next I switched to dissection scissors and completed my release of the transverse carpal ligament distally with care to protect the recurrent motor branch.? I completely released into the palmar fat and until no entrapment was noted distally.? Care was made to protect the superficial palmar arch during my distal dissection.? Next I then placed a [place] underneath the transverse carpal tunnel ligament to protect the contents of the carpal tunnel and subsequently utilizing dissection scissors under loupe magnification completely released the transverse carpal ligament proximally into the median antebrachial fascia.? Care was made to protect the palmar cutaneous branch by keeping my scissors curved ulnarly.? Once completely released, I then placed my [place] and had appropriate decompression of the carpal tunnel proximally as well as distally.? I then inspected the contents of the carpal tunnel which showed an hourglass shape of the median nerve showing its compression.? No masses were noted.? Tendons appeared healthy.? Wound was then thoroughly irrigated.? Tourniquet deflated.? Hemostasis satisfactory with bipolar electrocautery.? I then closed the incision with interrupted nylon stitches.? Xeroform 4 x 4's and a bulky soft dressing was applied to the right upper extremity.?Patient was then awakened from anesthesia and taken to PACU in stable condition.? Patient tolerated procedure without complications. Disposition: Patient taken to PACU in stable condition recovering well.? Dressing clean dry and intact.? Patient will receive appropriate discharge instructions as well as pain medication postoperatively.? Patient to follow-up with me in the office in 2 weeks.? They understand they may be weightbearing as tolerated to the bilateral hands.? Patient should keep incision clean dry and intact.? Patient understands if any questions or concerns he may contact the office.
--- NOTE | 2022-11-04 15:29 | ANE.PACU2 ---
Inpatient post-anesthesia follow up: Airway intact: Yes Vital signs: Temperature 97.2 F Pulse Rate 80 Respiratory Rate 16 Blood Pressure 144/88 Pulse Oximetry 98 Oxygen Delivery Me thod Room Air Oxygen Flow Rate Fraction of Inspir ed Oxygen Hydration adequate: Yes Nausea and vomiting: No Pain level: 1 Mental status: Baseline
== END 2022-11-04 10:49 | disposition home or self-care (01) ==
PROVIDERS: PCP Nurse Practitioner Family; Visit Provider Student in an Organized Health Care Education/Training Program
PROC: (CPT 64721; principal; 2022-11-04 07:50)
DX: G56.03 Carpal tunnel syndrome, bilateral upper limbs (principal); I25.10 Atherosclerotic heart disease of native coronary artery without angina pectoris; I11.0 Hypertensive heart disease with heart failure; I25.2 Old myocardial infarction; E78.5 Hyperlipidemia, unspecified; E66.01 Morbid (severe) obesity due to excess calories; Z68.32 Body mass index [BMI] 32.0-32.9, adult; Z79.82 Long term (current) use of aspirin; I50.30 Unspecified diastolic (congestive) heart failure; F32.A Depression, unspecified; F41.9 Anxiety disorder, unspecified; Z87.891 Personal history of nicotine dependence
CPT/HCPCS: 64721; J0131; J0690; J1100; J1885; J2370; J2405; J2704; J2795; J3010; J3490; J7030

== ENCOUNTER → 2023-04-12 16:36 | Outpatient (BNVA) | payer OTHER, SELFPAY | PROVIDERS: PCP Nurse Practitioner Family; Visit Provider Internal Medicine Cardiovascular Disease | DX: I25.10 Atherosclerotic heart disease of native coronary artery without angina pectoris (principal); E78.5 Hyperlipidemia, unspecified; R00.2 Palpitations | CPT/HCPCS: 36415; 80061; 80076; 83721; 93005 ==

== ENCOUNTER → 2023-11-23 14:13 | Outpatient (BNVA) | payer OTHER, SELFPAY | PROVIDERS: PCP Nurse Practitioner Family; Referring Provider Nurse Practitioner Family; Visit Provider Student in an Organized Health Care Education/Training Program | DX: M25.561 Pain in right knee (principal) | CPT/HCPCS: 73560; 73565 ==

== ENCOUNTER 2023-11-23 16:31 | Outpatient (CLI) | payer OTHER, SELFPAY | END 2023-11-23 16:32 | disposition home or self-care (01) | LOC: SPT 16:32 | PROVIDERS: PCP Nurse Practitioner Family; Visit Provider Student in an Organized Health Care Education/Training Program | DX: Z46.89 Encounter for fitting and adjustment of other specified devices (principal); M25.561 Pain in right knee | CPT/HCPCS: 97760; L1812 ==

== ENCOUNTER → 2025-06-19 09:08 | Outpatient (BNVA) | payer BC, SELFPAY | PROVIDERS: PCP Family Medicine; Visit Provider Student in an Organized Health Care Education/Training Program | DX: M25.562 Pain in left knee (principal); M25.561 Pain in right knee; M54.31 Sciatica, right side; M23.303 Other meniscus derangements, unspecified medial meniscus, right knee | CPT/HCPCS: 73560; 73565 ==